=== PATIENT | male | born 1955 | race Caucasian/White ===

== ENCOUNTER 2019-09-02 06:07 | Emergency (ER) | payer MEDICARE ==
[~2019-09-02] VITALS: Ht 180.3 cm; Wt 98.8 kg
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
[2019-09-02] MEDS ORDERED: METH10TA3 PO (06:39)
--- NOTE | 2019-09-02 06:45 | NUR ---
Pt report to Shyanne goldman.
--- NOTE | 2019-09-02 06:47 | NUR ---
REPORT RECEIVED FROM GERI ACKERMAN. PLAN OF CARE DISCUSSED.
--- NOTE | 2019-09-02 07:32 | NUR ---
PATIENT BACK FROM IMAGING, STATES BACK PAIN IS 8/10. PLACED BACK ON CONTINUOUS SPO2 AT 97%, CYCLE BP Q1 HR. COMPUTER APPLICATIONS ENGINEER IN ROOM.
[2019-09-02 07:47] LABS: BASOPHILS # (AUTO) 0.07 x10^3/uL (0-0.1); BASOPHILS % (AUTO) 1 % (0-1); EOSINOPHILS # (AUTO) 0.24 x10^3/uL (0-0.4); EOSINOPHILS % (AUTO) 2 % (1-7); LYMPHOCYTES # (AUTO) 2.44 x10^3/uL (1-3.4); LYMPHOCYTES % (AUTO) 24 % (22-44); MD NO; MEAN CORPUSCULAR HEMOGLOBIN 30.7 pg (27.5-34.5); MEAN CORPUSCULAR HGB CONC 34.1 g/dL (33.2-36.2); MEAN CORPUSCULAR VOLUME 89.9 fL (81-97); MEAN PLATELET VOLUME 7.9 fL (7.4-10.4); MONOCYTES # (AUTO) 0.48 x10^3/uL (0.2-0.8); MONOCYTES % (AUTO) 5 % (2-9); NEUTROPHILS # (AUTO) 6.97 x10^3/uL (1.8-6.8); NEUTROPHILS % (AUTO) 68 % (42-75); PLATELET COUNT 274 x10^3/uL (130-400); RED BLOOD COUNT 5.11 x10^6/uL (4.38-5.82); RED CELL DISTRIBUTION WIDTH 12.8 % (9.4-14.8)
[2019-09-02 07:57] LABS: ALANINE AMINOTRANSFERASE 62 U/L (12-78); ALBUMIN 3.6 g/dL (3.4-5.0); ANION GAP 6 mmol/L (5-15); CHLORIDE 104 mmol/L (98-107); CREATININE 0.74 mg/dL (0.7-1.3)
[2019-09-02 07:59] LABS: ALKALINE PHOSPHATASE 97 U/L (45-117); BILIRUBIN,TOTAL 0.4 mg/dL (0.2-1.0); TOTAL PROTEIN 7.4 g/dL (6.4-8.2)
[2019-09-02] MEDS ORDERED: METHOCARBAMOL 750 MG TABLET ONE (08:13)
[2019-09-02] MEDS ORDERED: KETOROLAC 30 MG/1 ML ONE (08:14)
--- NOTE | 2019-09-02 08:20 | NUR ---
patient medicated per emar, patient pacing in room to help alleviated back pain. patient states "this pain is different than any kind of pain i've felt before, it feels like my back is frozen".
[2019-09-02 08:23] VITALS: BP 160/101
[2019-09-02] MEDS ORDERED: KETOROLAC 30 MG/1 ML IM ONE (08:30)
[2019-09-02] MEDS ORDERED: METHOCARBAMOL 750 MG TABLET PO ONE (08:30)
--- NOTE | 2019-09-02 08:58 | NUR ---
Patient/Caregiver given discharge instructions and they have confirmed that they understand the instructions. Patient ambulatory with steady gait.
--- NOTE | 2019-09-02 09:01 | NUR ---
PATIENT VERBALIZED HE WILL CALL [facility] OR [facility] FOR RIDE.
== END 2019-09-02 09:03 | disposition home or self-care (01) ==
LOC: ED 06:39
DX: M54.16 Radiculopathy, lumbar region (principal); M51.36 Other intervertebral disc degeneration, lumbar region; I51.7 Cardiomegaly; J32.0 Chronic maxillary sinusitis; F17.200 Nicotine dependence, unspecified, uncomplicated; Z89.412 Acquired absence of left great toe; Z89.421 Acquired absence of other right toe(s)
CPT/HCPCS: 36415; 70450; 71045; 72110; 80053; 85025; 93005; 96372; 99284; J1885